=== PATIENT | female | born 1980 | race Caucasian/White ===

== ENCOUNTER 2018-05-22 13:40 | Emergency (ER) | payer MEDICAID ==
[~2018-05-22] VITALS: Ht 170.2 cm; Wt 81.7 kg
[~2018-05-22 13:40] MED LIST: ASCO100072 PO; IBUP200C8 PO; PREN1TAB60 PO
[2018-05-22 13:47] VITALS: BP 119/81
== END 2018-05-22 14:26 | disposition home or self-care (01) ==
LOC: ED 14:20
DX: Z48.02 Encounter for removal of sutures (principal)
CPT/HCPCS: 99282